=== PATIENT | male | born 1985 | race Caucasian/White ===

== ENCOUNTER 2023-01-17 10:53 | Day surgery (SDC) | payer OTHER ==
[2023-01-12 15:14] VITALS: BMI 26.5
[~2023-01-17 10:53] MED LIST: LACTATED RINGERS 1,000 ML IV SCH; LIDOCAINE 1% (10MG/ML) FOR IV START INTRADERMA PRN; MIDAZOLAM 2 MG/2 ML VIAL IV PRN
[2023-01-17] MEDS: ONDANSETRON 4 MG/2 ML VIAL IVP ONE ×2 (11:30→11:50)
[2023-01-17] MEDS: DEXAMETHASONE SOD PHOSPHATE 4 MG/ML 1 ML VIAL IV ONE ×2 (11:30→11:50)
[2023-01-17] MEDS ORDERED: LIDOCAINE 2% INJ 20 MG/ML (2 ML VIAL) ONE (12:38)
[2023-01-17] MEDS ORDERED: ROPIVACAINE 5 MG/ML 30 ML VIAL ONE (12:38)
[2023-01-17] MEDS ORDERED: MIDAZOLAM 2 MG/2 ML VIAL ONE (12:38)
[2023-01-17] MEDS ORDERED: DEXAMETHASONE SOD PHOSPHATE 4 MG/ML 1 ML VIAL ONE ×2 (12:38)
[2023-01-17] MEDS ORDERED: PROPOFOL 10 MG/ML 20 ML VIAL IV ONE (12:38)
[2023-01-17] MEDS ORDERED: fentaNYL (PF) 50 MCG/ML 2 ML AMP ONE (12:38)
[2023-01-17] MEDS ORDERED: KETOROLAC 15 MG/ML 1 ML VIAL ONE (12:38)
--- NOTE | 2023-01-17 12:59 | P.ANPRN ---
Procedure Note - Anesthesia - Nerve Block Performed Right Supraclavicular Single Time Out Performed: Yes Date of Procedure: 01/17/23 Procedure Start Time: 12:02 Procedure Stop Time: 12:05 Location of Patient: PreOp Indication: Acute Post-Operative Pain, Requested by Surgeon Sedation Type: Sedate with meaningful contact maintained Position: Supine Needle Types: Pajunk Needle Gauge: 21 Ultrasound used to visualize needle placement: Yes Ultrasound used to observe medication spread: Yes Blood Aspirated: No Pain Paresthesia on Injection Noted: No Resistance on Injection: Normal Image Stored and Saved: Yes Events: Uneventful and Well Tolerated (Ropivacaine 0.5% 20 mL plus dexamethasone 4 mg)
[2023-01-17] MEDS ORDERED: LIDOCAINE 1% INJ 10MG/ML (20 ML MDV) SQ ONE ×2 (13:00)
[2023-01-17] MEDS ORDERED: BUPIVACAINE (PF) 0.5% 30 ML VIAL MISCELLANE ONE ×2 (13:00)
[2023-01-17] MEDS: HYDROmorphone 0.5 MG/0.5 ML SYRINGE IVP PRN ×4 (14:35→15:00)
[2023-01-17 14:37] VITALS: TEMP 97
[2023-01-17] MEDS ORDERED: diphenhydrAMINE 50 MG/ML 1 ML VIAL IVP ONE (14:50)
[2023-01-17] MEDS ORDERED: hydrALAZINE HCL 20 MG/ML 1 ML VIAL ONE (15:21)
[2023-01-17] MEDS ORDERED: HYDROcodone/APAP 5-325MG 1 EACH TAB ONE (15:29)
--- NOTE | 2023-01-17 15:29 | P.OP ---
Date of Procedure: 01/17/23 Preoperative Diagnosis: Right 4th and 5th CMC dislocation and hamate fracture Postoperative Diagnosis: Same Procedure(s) Performed: 1. Right 4th and 5th CMC open reduction 2. Right hamate ORIF Anesthesia: TANNER regional Surgeon: Gracia Romero Estimated Blood Loss (ml): 5 Condition: stable Disposition: PACU Indications for Procedure: Todd is 37M who had a crush injury to his hand while moving a treadmill up some stairs. He sustained a 4th and 5th CMC joint fracture dislocation. We had a discussion about his treatment and he would like to proceed with surgical intervention. Operative Findings: Right 4th and 5th MC were dorsally dislocated from the hamate. Hamate was found to have an intraarticular fracture that was displaced. Description of Procedure: Patient, procedure, and operative extremity were identified in the preop holding area. A regional block was administered by the anesthesia team. He was then brought back to the OR and the extremity was prepped and draped. A formal timeout was performed and the tourniquet was inflated. A longitudinal incision was made between the 4th/5th CMC joint. Dissection was taken down to the joint capsule. The tendons and cutaneous nerves were protected. A longitudinal capsulotomy was performed and the injury was visualized. The 4th and 5th metacarpals were dorsally dislocated through an intraarticular hamate fracture. The fracture hematoma was cleaned. Traction was applied to the 4th metacarpal and volar translation. This relocated the metacarpal onto the volar hamate piece. A 0.056 K wire was placed to maintain the reduction. A similar technique was used for the 5th metacarpal. The dorsal piece of the hamate was lifted and reduced and a 0.045 K wire was driven across to secure the piece. The capsule was then repaired with 3.0 vicryl suture. The tourniquet was let do wn and hemostasis was achieved. The skin around the metacarpal K wires was tight and the decision was made to vent it to relieve the pressure. The wounds were closed with 4.0 nylon. The k wires were clipped and capped with jergin's balls. The wound was dressed with adaptic and cast padding and an ulnar gutter splint. Patient was aroused by the anesthesia team and brought back to PACU in stable condition.
[2023-01-17 15:40] VITALS: RESP 16
[2023-01-17 15:51] VITALS: BP 170/92; PULSE 75
== END 2023-01-17 15:59 | disposition home or self-care (01) ==
LOC: OR 10:53
PROVIDERS: ATTEND Orthopaedic Surgery Hand Surgery
DX: S62.141A Displaced fracture of body of hamate [unciform] bone, right wrist, initial encounter for closed fracture (principal); S63.054A Dislocation of other carpometacarpal joint of right hand, initial encounter; W31.89XA Contact with other specified machinery, initial encounter; F17.210 Nicotine dependence, cigarettes, uncomplicated; F10.20 Alcohol dependence, uncomplicated; Z98.890 Other specified postprocedural states; Z82.49 Family history of ischemic heart disease and other diseases of the circulatory system; Z79.1 Long term (current) use of non-steroidal anti-inflammatories (NSAID)
CPT/HCPCS: 26545; 26685; 64415; J2250; J0360; J1200; J1100; J0690; J2405; J2001 ×2; J3010; J2795; J1885; J2704; J1170; 64999; 76942